=== PATIENT | female | born 1960 | race Caucasian/White ===

== ENCOUNTER 2019-05-11 20:04 | Observation (INO) | payer OTHER ==
[~2019-05-11] VITALS: Ht 167.6 cm; Wt 110.0 kg
[2019-05-11 20:36] LABS: BASOPHILS ABSOLUTE AUTO 0.02 K/mm3 (0.00-0.23); BASOPHILS PERCENT AUTO 0 % (0-2); EOSINOPHILS ABSOLUTE AUTO 0.19 K/mm3 (0.00-0.68); EOSINOPHILS PERCENT AUTO 3 % (0-6); Hematocrit 39.6 % (33.0-51.0); Hemoglobin 13.4 g/dL (11.5-16.0); IMMATURE GRAN ABSOLUTE AUTO 0.02 K/mm3 (0.00-0.10); IMMATURE GRAN PERCENT AUTO 0 % (0-1); LYMPHOCYTES ABSOLUTE AUTO 3.16 K/mm3 (0.84-5.20); LYMPHOCYTES PERCENT AUTO 50 % (21-46); MONOCYTES ABSOLUTE AUTO 0.37 K/mm3 (0.16-1.47); MONOCYTES PERCENT AUTO 6 % (4-13); Mean Corpuscular HGB 31.4 pg (26.0-34.0); Mean Corpuscular HGB Conc 33.8 g/dL (31.5-36.5); Mean Corpuscular Volume 93 fL (80-100); NEUTROPHILS ABSOLUTE AUTO 2.52 K/mm3 (1.96-9.15); NEUTROPHILS PERCENT AUTO 40 % (41-73); Platelet Count 260 K/mm3 (150-400); RDW Coefficient Variation 12.4 % (11.7-14.2); RDW Standard Deviation 42.3 fL (35.1-46.3); Red Blood Cell Count 4.27 M/mm3 (3.80-5.20); White Blood Cell Count 6.28 K/mm3 (4.00-11.30)
[2019-05-11 20:52] LABS: Alanine Aminotransfer (ALT/SGP 41 U/L (12-78); Albumin, Blood 3.9 g/dL (3.4-5.0); Alk Phos 146 U/L (50-136); Anion Gap 6 mmol/L (6-16); Aspartate Aminotrans (AST/SGOT 24 U/L (12-37); Bilirubin, Total 0.3 mg/dL (0.1-1.0); Blood Urea Nitrogen 18 mg/dL (8-24); Bun/Creatinine Ratio 20.9 (12.0-20.0); CO2, Blood 28 mmol/L (21-32); Calcium, Blood 8.8 mg/dL (8.5-10.1); Chloride, Blood 110 mmol/L (98-108); Creatinine, Blood 0.86 mg/dL (0.40-1.00); Globulin, Blood 3.8 g/dL (2.2-4.0); Glomerular Filtration Rate >60 (60-); Glucose, Blood 113 mg/dL (70-99); Potassium, Blood 3.6 mmol/L (3.5-5.5); Sodium, Blood 144 mmol/L (136-145); Total Protein, Blood 7.7 g/dL (6.4-8.2); Troponin I <0.015 ng/mL (0.000-0.040)
--- NOTE | 2019-05-12 05:34 | NUR ---
PT ADMITTED FROM ED AT APPROX 0115 FOR CHOLECYSTITIS. NPO FOR SURGERY LATER TODAY. PT DENYING PAIN AND N/V. FLUIDS INFUSING. 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
--- NOTE | 2019-05-12 07:00 | NUR ---
recvd report from previous shift rn edis, pt sleeping in room, call light within reach, bed rails up x 2, bed in loweset position
--- NOTE | 2019-05-12 08:55 | NUR ---
pt and in room. pt denies pain, no n/v. pt inquired as to when to expect surgery today, notified that dr kennedy will operate when the OR is available. pt inquires whether or not she could go home to [place] to have surgery. this Rn discussed with pt that if that is her wish, she should discuss with Dr Kennedy so she may make an informed decision. pt states she will discuss with her and the doctor
--- NOTE | 2019-05-12 14:17 | NUR ---
DAYSURGERY RN HERE TO TRANSPORT PT VIA STRETCHER TO DAYSURGERY UNIT, FAMILY WITH PT
--- NOTE | 2019-05-12 14:25 | NUR ---
INTO PRE-OP VIA DrikNEY. PT REPORTS 2/10 ABDOMINAL PAIN. DENIES NAUSEA. HISTORY AND ALLERGIES REVIEWED. LUNGS CLEAR. SATS>90% ON RA. NPO STATUS CONFIRMED.
[2019-05-12] MEDS ORDERED: HYDR1TAB94 PO (17:35)
[2019-05-12] MEDS ORDERED: NAPR500 PO (17:35)
[2019-05-12] MEDS ORDERED: ONDA4ODT MM (17:36)
--- NOTE | 2019-05-12 19:26 | NUR ---
SHIFT SUMMARY PT A&OX4, VSS, S/P LAP BELINDA AND UMB HERNIA, 4 GAUZE SITES CDI. PAIN MANAGED WITH NAPROXEN. KASHMIR PO, CL DIET. AMB SBA TO BRP. VOIDING WELL; REP HAVING BM. HAS DECIDED TO STAY NIGHT, WILL DC IN AM. REPORT GIVEN TO QUIANA ALY.
--- NOTE | 2019-05-13 05:49 | NUR ---
SHIFT SUMMARY: PT POD #1 FOR LAP BELINDA. ABD LAP SITES INTACT WITHOUT ANY DRAINAGE. PT C/O SOME NAUSEA AND PAIN ONCE. GIVEN REGLAN AND 1 NORCO PER EMAR. PT DENYING PAIN THIS MORNING. KASHMIR REG DIET. FLUIDS TKO. PT INDEPENDENT IN ROOM AND VOIDING WELL. PLAN FOR DISCHARGE TODAY.
--- NOTE | 2019-05-13 08:40 | NUR ---
DISCHARGE PT DISCHARGED HOME AT THIS TIME. PT EDUCATED ON AND RECEIVED PRINTED DC INSTRUCTIONS AND VERB AN UNDERSTANDING. PT REPORTS HAVING F/U APPT WITH PCP IN [place] ON 05/25/19. HARD RX FOR NORCO AND ZOFRAN GIVEN TO PT. IV DC'D. PT VOIDING AND HAD X1 BM. KASHMIR REG DIET. ORAL PAIN MEDICATIONS MANAGING PAIN. UP AND WALKING HALLWAYS INDEP. PT REPORTS LEAVING WITH ALL PERSONAL BELONGINGS. AT SIDE TO DRIVE PT HOME.
--- NOTE | 2019-05-14 09:19 | NUR ---
05/14/19 0919 Jaycee Lauren VERIFICATIONS: EDIT CHART.
== END 2019-05-13 08:38 | disposition home or self-care (01) ==
LOC: ER 20:04 → SURS 20:05
PROVIDERS: Emergency Medicine; ADMIT Surgery
PROC: 0FT44ZZ Resection of Gallbladder, Percutaneous Endoscopic Approach (ICD-10-PCS; principal; 2019-05-12 13:00)
PROC: BF13YZZ Fluoroscopy of Gallbladder and Bile Ducts using Other Contrast (ICD-10-PCS; 2019-05-12 13:00)
DX: K80.12 Calculus of gallbladder with acute and chronic cholecystitis without obstruction (principal); K42.9 Umbilical hernia without obstruction or gangrene; K66.0 Peritoneal adhesions (postprocedural) (postinfection); I48.91 Unspecified atrial fibrillation; Z88.1 Allergy status to other antibiotic agents
CPT/HCPCS: 36415; 71046; 74300; 76705; 80053; 83690; 84484; 85025; 88304; 93005; 93010; 96365; 96372; 96375; 99285-25; A9270-GY; C1729; G0378; J0694; J1100; J1650; J1885; J2250; J2270; J2405; J2550; J2704; J2710; J2765; J3010; J7030; J7120